=== PATIENT | female | born 1935 | race Caucasian/White ===

== ENCOUNTER 2019-03-10 08:48 | Inpatient (IN) | payer MEDICARE, OTHER ==
[~2019-03-10] VITALS: Ht 152.4 cm; Wt 58.5 kg
[2019-03-10] MEDS ORDERED: SODIUM CHLORIDE 0.9% 1000ML 1,000 ML IV STA (08:56)
[2019-03-10] MEDS ORDERED: ONDANSETRON HCL INJ 2MG/ML 2ML 2 MG/ML VIAL IV ONE (09:30)
[2019-03-10] MEDS ORDERED: PANTOPRAZOLE 40 MG 10ML VIAL IV ONE (09:30)
--- NOTE | 2019-03-10 09:41 | NUR ---
TYPE AND CROSS MATCH COMPLETED
--- NOTE | 2019-03-10 09:52 | Diagnostic Imaging Report ---
Examination: Single AP view of the chest. COMPARISON: None. INDICATION: Vomiting DISCUSSION: The lungs are well-inflated and without focal consolidation, pleural effusion, or pneumothorax. Tortuous thoracic aorta with atherosclerotic calcification. Normal heart size. No pulmonary edema. No acute osseous abnormality. IMPRESSION: 1. No acute cardiopulmonary abnormalities. Signed by: Dr. Molina Veliz M.D. on 03/10/2019 9:49 AM
[2019-03-10 10:09] LABS: BASOPHILS % 0.2 % (0.0-1.0); EOSINOPHILS # (AUTO) 0.1 (0.0-0.4); EOSINOPHILS % 0.2 % (0.0-6.0); HEMATOCRIT 36.8 % (34.2-44.1); HEMOGLOBIN 12.2 g/dL (12.0-16.0); LYMPHOCYTES # (AUTO) 0.6 (1.0-3.2); LYMPHOCYTES % 2.4 % (18.0-39.1); MEAN CORPUSCULAR HEMOGLOBIN 30.9 pg (28-32); MEAN CORPUSCULAR HGB CONC 33.2 g/dL (31-35); MEAN CORPUSCULAR VOLUME 93.2 fL (81-99); MONOCYTES # (AUTO) 0.5 (0.2-0.8); MONOCYTES % 2.1 % (4.4-11.3); NEUTROPHILS # (AUTO) 22.3 (2.1-6.9); NEUTROPHILS % 94.8 % (38.7-80.0); PLATELET COUNT 363 x10e3/uL (140-360); RED BLOOD COUNT 3.95 x10e6/uL (3.6-5.1); RED CELL DISTRIBUTION WIDTH 13.3 % (11.7-14.4)
[2019-03-10 10:16] LABS: INR 0.96; PROTHROMBIN TIME 13.3 seconds (11.9-14.5)
[2019-03-10 10:19] LABS: BILIRUBIN,URINE NEGATIVE (NEGATIVE); CLARITY,URINE CLOUDY (CLEAR); COLOR,URINE YELLOW (YELLOW); KETONES,URINE TRACE (NEGATIVE); LEUKOCYTE ESTERASE ,URINE SMALL (NEGATIVE); NITRITE,URINE POSITIVE (NEGATIVE); PROTEIN,URINE DIPSTICK TRACE (NEGATIVE); URINE UROBILINOGEN 0.2 mg/dL (0.2 - 1)
[2019-03-10 10:25] LABS: ALANINE AMINOTRANSFERASE 15 IU/L (0-55); ALBUMIN 3.2 g/dL (3.5-5.0); ALBUMIN/GLOBULIN RATIO 0.8 (0.8-2.0); ALKALINE PHOSPHATASE 57 IU/L (40-150); ANION GAP 19.5 mmol/L (8-16); BLOOD UREA NITROGEN 17 mg/dL (7-26); BUN/CREATININE RATIO 18 (6-25); CALCIUM 9.1 mg/dL (8.4-10.2); CARBON DIOXIDE 19 mmol/L (22-29); CHLORIDE 104 mmol/L (98-107); CREATININE, SERUM 0.97 mg/dL (0.57-1.11); EST GLOMERULAR FILTRATION RATE 55 ML/MIN (60-); GLUCOSE 242 mg/dL (74-118); LIPASE 25 U/L (8-78); POTASSIUM 3.5 mmol/L (3.5-5.1); SODIUM 139 mmol/L (136-145)
[2019-03-10 10:38] LABS: BACTERIA,URINE MANY /HPF; WBC,URINE (MAN) >50 /HPF (0-5)
[2019-03-10 10:39] LABS: EPITHELIAL CELLS,URINE RARE /LPF
[2019-03-10] MEDS ORDERED: ONDANSETRON HCL INJ 2MG/ML 2ML 2 MG/ML VIAL IV PRN (10:45)
[2019-03-10] MEDS ORDERED: KCL 20MEQ/.9 SOD CHL 1,000 ML IV ONE (10:45)
--- OUTSIDE RECORDS SUMMARY | 2019-03-10 11:00 | XMS REPORT ---
Author Author [facility] Address Unknown Phone Unavailable Care Team Providers Care Risk Compliance Manager Name Role Phone Maddie HERNANDEZ Unavailable Unavailable Problems This patient has no known problems. Allergies, Adverse Reactions, Alerts This patient has no known allergies or adverse reactions. Medications This patient has no known medications. Results Test Description Test Time Test Comments Text Results Atomic Results Result Comments CHEST SINGLE (PORTABLE) 2019-03-10 09:48:00 [place] [address] Patient Name: JAMESON LOZADA MR #: [id number] : 1935 Age/Sex: 83/F Req #: [id number] Adm Physician: Ordered by: GERMÁN HERNANDEZ MD Report #: [id number] Location: ER Room/Bed: Procedure: [id number] DX/CHEST SINGLE (PORTABLE) Exam Date: 03/10/19 Exam Time: 924 REPORT STATUS: Signed Examination: Single AP view of the chest. COMPAR JUNI: None. INDICATION: Vomiting DISCUSSION: The lungs are well-inflated and without focal consolidation, pleural effusion, or pneumothorax. Tortuous thoracic aorta with atherosclerotic calcification. Normal heart size. No pulmonary edema. No acute osseous abnormality. IMPRESSION: 1. No acute cardiopulmonary abnormalities. Signed by: Dr. Donna Puga M.D. on 03/10/2019 9:49 AM Dictated By: DONNA PUGA MD 8 Transcribed By: RANCHO on 03/10/19948 COPY TO: GERMÁN HERNANDEZ MD
--- NOTE | 2019-03-10 11:10 | NUR ---
AT 1112 LACTIC DRAWN. FIRST SET OF CULTURES DRAWN
[2019-03-10] MEDS: MEROPENEM 1GM 100 ML IV SCH ×2 (11:50→19:57)
--- NOTE | 2019-03-10 12:33 | NUR ---
REPORT TO ACCEPTING NURSE. PATIENT NEEDS PINK TOP
--- NOTE | 2019-03-10 12:45 | NUR ---
RCD PT FROM ER BY STRETCHER PT IS ALERT AND HAVE DEMENTIA ,VITALS CHECKED PT RESTING ON BED NO SIGNS OF ANY DISTRESS NOTED ADMISSION ASSESSMENT AND HISTORY DONE FAMILY AT BED SIDE IV PATENT AND AND RUNNING 100 ML /HR ,INSTRUCTED TO FAMILY REGARDING HOSPITAL POLICY AND ROUTINE BED LOW AND LOCKED CALL LIGHT IN REACH
--- NOTE | 2019-03-10 13:16 | NUR ---
PAGED DR Dian LEIJA TO NOTIFY THE CRITICAL LAB LACTIC ACID 60.8
[2019-03-10 13:30] VITALS: BP 117/66
--- NOTE | 2019-03-10 13:42 | NUR ---
DR LEIJA RETURNED THE CALL GOT NEW ORDERS IV VANCOMYCIN AND CONSULT TO DR CONTRERAS
[2019-03-10] MEDS: VANCOMYCIN 1GM/NS 250 ML 250 ML IV SCH (14:00)
[2019-03-10 14:05] VITALS: BP 117/66
[2019-03-10 14:20] VITALS: BP 117/66
[2019-03-10 15:27] LABS: CREATINE KINASE 48 IU/L (29-168)
[2019-03-10 15:32] VITALS: BP 153/66
[2019-03-10] MEDS ORDERED: ASPIR 8181 MG PO (15:50)
[2019-03-10] MEDS ORDERED: ZOFRAN4 MG PO (15:50)
[2019-03-10] MEDS ORDERED: MECLIZINE HCL12.5 MG PO (15:50)
[2019-03-10] MEDS ORDERED: RIVASTIGMINE1.5 MG PO (15:50)
--- NOTE | 2019-03-10 18:41 | NUR ---
PT RESTING ON BED BED SIDE REPORT GIVEN TO ONCOMING NURSE
[2019-03-10] MEDS ORDERED: SODIUM CHLORIDE 0.9% 250ML 250 ML ONE (19:45)
[2019-03-10 19:50] VITALS: BP 153/66
--- NOTE | 2019-03-10 19:50 | NUR ---
Pt back from CT. Pt resting comfortably in bed with family at bedside. Pt has no complaints of pain. Pt calm and in no apparent distress. Bed is in low locked position with call light in reach.
[2019-03-10 19:56] VITALS: BP 148/70
[2019-03-10] MEDS ORDERED: SODIUM CHLORIDE 0.9% 50ML 50 ML ONE ×2 (20:20→20:26)
[2019-03-10] MEDS ORDERED: IOPAMIDOL 370 MG/ML 200 ML INFUS..BTL INJ ONE (20:20)
--- NOTE | 2019-03-10 20:47 | Diagnostic Imaging Report ---
EXAM: CT of the abdomen and pelvis WITH contrast HISTORY: sepsis, dehydration, dementia COMPARISON: None. TECHNIQUE: The abdomen and pelvis were scanned utilizing a multidetector helical scanner. Coronal and sagittal reformats are provided. PROTOCOL: Routine IV CONTRAST: 100 cc of Isovue-370. ORAL CONTRAST: None, which limits sensitivity and specificity of the exam. RADIATION DOSE: Total DLP: 575.58 mGy*cm Estimated effective dose: (DLP x 0.015 x size factor) Dose modulation, iterative reconstruction, and/or weight based adjustment of the mA/kV was utilized to reduce the radiation dose to as low as reasonably achievable. COMPLICATIONS: None FINDINGS: LOWER THORAX: Bilateral lower lobe dependent patchy interstitial and airspace opacities. A large hiatal hernia containing the proximal stomach. HEPATOBILIARY: No mass. No biliary dilation. No calcified gallstone. SPLEEN: No splenomegaly. PANCREAS: No focal masses or ductal dilatation. ADRENALS: No discrete adrenal nodule. KIDNEYS/URETERS: No hydronephrosis, stones, or definite solid mass lesions. Mild malrotation of the right kidney. PELVIC ORGANS/BLADDER: The visualized pelvic organs appear unremarkable. GI TRACT: No dilation or wall thickening identified. The appendix is normal. Colonic diverticulosis, most notably prominent of the sigmoid colon. PERITONEUM / RETROPERITONEUM: No free air or fluid. LYMPH NODES: No pathologically enlarged lymph node. VESSELS: Diffuse scattered atherosclerotic vascular calcifications. BONES: Diffusely decreased mineralization of the osseous structures limits bone detail. Multifocal degenerative changes. SOFT TISSUES: Unremarkable. IMPRESSION: 1. Bilateral lower lobe dependent interstitial and airspace opacities, differential considerations include: Atelectasis, aspiration, or less likely multifocal pneumonia given the distribution and symmetry. 2. Colonic diverticulosis. 3. Large hiatal hernia. Signed by: Dr. Rory Noland D.O., M.M.M. on 03/10/2019 8:43 PM
--- NOTE | 2019-03-10 21:56 | Consultation ---
DATE OF CONSULTATION: 03/10/2019 REASON FOR CONSULTATION: Sepsis. HISTORY OF PRESENT ILLNESS: This patient, who is an 83-year-old female. According to the family, who is at the bedside, the patient has not been in the hospital for several years, she does have underlying history of dementia. She comes to us from the house. She had an episode of nausea and vomiting x1 week ago, which was dark brown-type blood. She was okay and the patient has been taken care of by her , who is also elderly, but then again today, the patient had an episode of vomiting yesterday. She was brought to the emergency room. In the emergency room, it was noted that she has significant leukocytosis and elevated lactic acid. The patient, who was very pleasant, alert, oriented, follows simple commands, does not provide any meaningful information, but her granddaughter is at the bedside, provides all the information. She is currently alert and as mentioned above, no complaints, but her laboratory data quite abnormal as mentioned above. PAST MEDICAL HISTORY: Dementia. PAST SURGICAL HISTORY: Denies. ALLERGIES: NKA. SOCIAL HISTORY: There is no smoking, drug abuse, or alcohol abuse. FAMILY HISTORY: Noncontributory. REVIEW OF SYSTEMS: According to the family other than what is mentioned above: HEENT: Negative. PULMONARY: Negative. CARDIAC: Negative. : Negative. SKIN: There is no rash. JOINTS: There is no effusion. LABORATORY DATA: White count on admission was 23.5 and hemoglobin 12.2. Her sodium 139, potassium 3.5, and creatinine 0.97. Her lactic acid was 60 and alkaline phosphatase 57. Blood culture is still pending. Urine culture is still pending. A chest x-ray was done, which showed no acute finding. PHYSICAL EXAMINATION: GENERAL: She is currently alert, oriented, and comfortable. Does not seem to be in acute distress. VITAL SIGNS: Stable. Currently afebrile. HEENT: Normocephalic. Does not appear icteric. NECK: Supple. CHEST: Clear bilateral. COR: S1 and S2. No S3, S4, or murmur. ABDOMEN: Soft. Bowel sounds present. No tenderness. No hepatosplenomegaly. EXTREMITIES: No edema. SKIN: There is no rash. IMPRESSION AND PLAN: Sepsis, present on admission, etiology unclear; an episode of nausea and vomiting, which was dark blood, but now seems to be stable. Agree with blood cultures. Agree with urine cultures. Agree with vancomycin and meropenem. Recheck CBC. Recheck chem panel. Obtain CT scan of the abdomen and pelvis. We will reassess in the morning. Discussed with the patient and discussed with the patient's family, who is at the bedside. Discussed with internal Medicine. Thank you for asking me to see this patient. MD AYUSH Herrera/RISSA /[id number]
[2019-03-11] VITALS (7 sets, daily range): BP systolic 104–133; BP diastolic 56–88
[2019-03-11 00:55] LABS: CREATINE KINASE 66 IU/L (29-168)
[2019-03-11] MEDS: MEROPENEM 1GM 100 ML IV SCH ×3 (02:44→19:46)
[2019-03-11 05:26] LABS: BASOPHILS % 0.2 % (0.0-1.0); HEMATOCRIT 28.8 % (34.2-44.1); HEMOGLOBIN 9.6 g/dL (12.0-16.0); LYMPHOCYTES # (AUTO) 2.3 (1.0-3.2); LYMPHOCYTES % 11.3 % (18.0-39.1); MEAN CORPUSCULAR HEMOGLOBIN 31.3 pg (28-32); MEAN CORPUSCULAR HGB CONC 33.3 g/dL (31-35); MEAN CORPUSCULAR VOLUME 93.8 fL (81-99); MONOCYTES # (AUTO) 0.7 (0.2-0.8); MONOCYTES % 3.2 % (4.4-11.3); NEUTROPHILS # (AUTO) 17.6 (2.1-6.9); NEUTROPHILS % 84.8 % (38.7-80.0); PLATELET COUNT 287 x10e3/uL (140-360); RED BLOOD COUNT 3.07 x10e6/uL (3.6-5.1); RED CELL DISTRIBUTION WIDTH 14.1 % (11.7-14.4)
[2019-03-11 05:50] LABS: ALANINE AMINOTRANSFERASE 10 IU/L (0-55); ALBUMIN 2.3 g/dL (3.5-5.0); ALBUMIN/GLOBULIN RATIO 0.8 (0.8-2.0); ALKALINE PHOSPHATASE 52 IU/L (40-150); ANION GAP 8.9 mmol/L (8-16); BLOOD UREA NITROGEN 12 mg/dL (7-26); BUN/CREATININE RATIO 15 (6-25); CALCIUM 8.3 mg/dL (8.4-10.2); CARBON DIOXIDE 23 mmol/L (22-29); CHLORIDE 114 mmol/L (98-107); CREATININE, SERUM 0.81 mg/dL (0.57-1.11); EST GLOMERULAR FILTRATION RATE > 60 ML/MIN (60-); GLUCOSE 107 mg/dL (74-118); POTASSIUM 3.9 mmol/L (3.5-5.1); SODIUM 142 mmol/L (136-145)
[2019-03-11 06:52] LABS: CREATINE KINASE MB 1.9 ng/mL (0-5.0)
--- NOTE | 2019-03-11 07:20 | NUR ---
Report given to dayshift RN at this time. Pt resting comfortably in bed. Daughter and are at bedside.
--- NOTE | 2019-03-11 08:53 | NUR ---
Received patient this morning, a/ox2-3, family at the bedside at the moment, per report patient presents more coherent today and able to respond to prompts compared to previous days. Seen by ID this morning, WBC still elevated, patient on Vanco for emperic coverage pending blood and urine cultures. Call light within reach.
[2019-03-11] MEDS: PANTOPRAZOLE 40 MG 10ML VIAL IV SCH (09:02)
[2019-03-11] MEDS: VANCOMYCIN 1GM/NS 250 ML 250 ML IV SCH (14:00)
--- NOTE | 2019-03-11 14:00 | NUR ---
Rounds by attending at this time and orders in place for labs and to recheck lactic acid level. patient stable, repositioned per protocol and will continue to monitor.
--- NOTE | 2019-03-11 18:21 | NUR ---
Patient alert and stable, OOB and ambulated with staff and family, tolerated all abx, VSS and comfortable, no resp distress, call light within reach and will monitor. Patient had a shower today.
--- NOTE | 2019-03-11 19:45 | NUR ---
Pt resting comfortably in bed. Family is at bed side. Pt in no resp distress. Bed is in low locked position with call light in reach.
[2019-03-12] VITALS (9 sets, daily range): BP systolic 118–184; BP diastolic 62–94
[2019-03-12] MEDS: MEROPENEM 1GM 100 ML IV SCH ×3 (02:29→20:17)
[2019-03-12 05:02] LABS: BASOPHILS # (AUTO) 0.1 (0.0-0.1); BASOPHILS % 0.3 % (0.0-1.0); EOSINOPHILS % 0.2 % (0.0-6.0); HEMATOCRIT 28.1 % (34.2-44.1); HEMOGLOBIN 9.6 g/dL (12.0-16.0); LYMPHOCYTES # (AUTO) 3.4 (1.0-3.2); LYMPHOCYTES % 20.3 % (18.0-39.1); MEAN CORPUSCULAR HEMOGLOBIN 31.2 pg (28-32); MEAN CORPUSCULAR HGB CONC 34.2 g/dL (31-35); MEAN CORPUSCULAR VOLUME 91.2 fL (81-99); MONOCYTES # (AUTO) 0.9 (0.2-0.8); MONOCYTES % 5.2 % (4.4-11.3); NEUTROPHILS # (AUTO) 12.3 (2.1-6.9); NEUTROPHILS % 73.5 % (38.7-80.0); PLATELET COUNT 292 x10e3/uL (140-360); RED BLOOD COUNT 3.08 x10e6/uL (3.6-5.1); RED CELL DISTRIBUTION WIDTH 13.5 % (11.7-14.4)
[2019-03-12 05:20] LABS: ANION GAP 10.1 mmol/L (8-16); BLOOD UREA NITROGEN 10 mg/dL (7-26); BUN/CREATININE RATIO 14 (6-25); CALCIUM 8.1 mg/dL (8.4-10.2); CARBON DIOXIDE 21 mmol/L (22-29); CHLORIDE 108 mmol/L (98-107); CREATININE, SERUM 0.73 mg/dL (0.57-1.11); EST GLOMERULAR FILTRATION RATE > 60 ML/MIN (60-); GLUCOSE 97 mg/dL (74-118); POTASSIUM 3.1 mmol/L (3.5-5.1); SODIUM 136 mmol/L (136-145)
--- NOTE | 2019-03-12 07:30 | NUR ---
Received patient this morning and alert and responsive, call light within reach, bed in low locked position, will monitor.
[2019-03-12] MEDS: PANTOPRAZOLE 40 MG 10ML VIAL IV SCH (09:00)
[2019-03-12] MEDS: VANCOMYCIN 1GM/NS 250 ML 250 ML IV SCH (14:00)
--- NOTE | 2019-03-12 19:00 | NUR ---
Pt resting comfortably in bed at this time. Family is at bedside. Pt denies pain. Bed is in low locked position with call light in reach.
[2019-03-13] VITALS (8 sets, daily range): BP systolic 119–142; BP diastolic 60–87
[2019-03-13] MEDS: MEROPENEM 1GM 100 ML IV SCH ×3 (03:05→21:30)
--- NOTE | 2019-03-13 07:20 | NUR ---
Report given to JOAN White. Pt resting comfortably in bed at this time, in no resp distress. Pt granddaughter is at bedside. Bed is in low locked position and call light is in reach.
[2019-03-13] MEDS: PANTOPRAZOLE 40 MG 10ML VIAL IV SCH (09:26)
[2019-03-13] MEDS ORDERED: POTASSIUM CHLORIDE 20MEQ/15ML UDC NG ONE (11:00)
--- NOTE | 2019-03-13 12:39 | NUR ---
Spoke with Dr. lanza at this time about possible discharge today. He was upset stating, "No, I said a couple of days. She will go in a couple days. Tell them that." I verbalized understanding.
--- NOTE | 2019-03-13 12:44 | NUR ---
CM SPOKE TO DR. LEIJA REGARDING DISCHARGE PLAN AND PLAN OF CARE. AT THIS TIME, PER MD, PATIENT TO STAY INPT AND DISCHARGE IN 1-2 DAYS. MD WANTS PATIENT TO HAVE IV ABX TREATMENTS FOR 1-2 MORE DAYS PRIOR TO TRANSITIONING TO PO ABX. CASE ESCALATED TO [facility] OPERATIONS INTELLIGENCE OFFICER, DR. SHARON DAVENPORT.
[2019-03-13] MEDS: VANCOMYCIN 1GM/NS 250 ML 250 ML IV SCH (14:25)
--- NOTE | 2019-03-13 19:20 | NUR ---
Patient received lying in bed. Granddaughter at bedside. AAO x 1. No complaints of pain. respirations even and non-labored. Fall precautions implemented. Call light within reach.
[2019-03-14 00:27] VITALS: BP 105/61
[2019-03-14] MEDS: MEROPENEM 1GM 100 ML IV SCH ×2 (03:19→11:12)
[2019-03-14 04:48] VITALS: BP 134/78
[2019-03-14 05:22] LABS: BASOPHILS % 0.4 % (0.0-1.0); EOSINOPHILS # (AUTO) 0.2 (0.0-0.4); EOSINOPHILS % 2.6 % (0.0-6.0); HEMATOCRIT 30.1 % (34.2-44.1); LYMPHOCYTES # (AUTO) 2.6 (1.0-3.2); LYMPHOCYTES % 28.1 % (18.0-39.1); MEAN CORPUSCULAR HEMOGLOBIN 30.4 pg (28-32); MEAN CORPUSCULAR HGB CONC 33.2 g/dL (31-35); MEAN CORPUSCULAR VOLUME 91.5 fL (81-99); MONOCYTES # (AUTO) 0.8 (0.2-0.8); NEUTROPHILS # (AUTO) 5.5 (2.1-6.9); NEUTROPHILS % 59.5 % (38.7-80.0); PLATELET COUNT 345 x10e3/uL (140-360); RED BLOOD COUNT 3.29 x10e6/uL (3.6-5.1); RED CELL DISTRIBUTION WIDTH 13.5 % (11.7-14.4)
[2019-03-14 05:45] LABS: ANION GAP 10.4 mmol/L (8-16); BLOOD UREA NITROGEN 10 mg/dL (7-26); BUN/CREATININE RATIO 15 (6-25); CALCIUM 8.1 mg/dL (8.4-10.2); CARBON DIOXIDE 22 mmol/L (22-29); CHLORIDE 109 mmol/L (98-107); CREATININE, SERUM 0.68 mg/dL (0.57-1.11); EST GLOMERULAR FILTRATION RATE > 60 ML/MIN (60-); GLUCOSE 107 mg/dL (74-118); POTASSIUM 3.4 mmol/L (3.5-5.1); SODIUM 138 mmol/L (136-145)
--- NOTE | 2019-03-14 07:00 | NUR ---
Walking rounds done . Shift report given to oncoming nurse.
[2019-03-14 07:52] VITALS: BP 116/67
[2019-03-14 07:55] VITALS: BP 116/67
[2019-03-14] MEDS: PANTOPRAZOLE 40 MG 10ML VIAL IV SCH (09:03)
[2019-03-14] MEDS ORDERED: LACTULOSE SYRUP 20 GM/30 ML UDC PO PRN (11:00)
[2019-03-14 12:00] VITALS: BP 156/57
--- NOTE | 2019-03-14 13:04 | NUR ---
Vancomycin trough came back at 10.3. 1400 dose administered.
--- NOTE | 2019-03-14 14:12 | NUR ---
PT SIGNED CHOICE FOR [facility] TO DISCHARGE HOME FAMILY TO TRANSPORT.
[2019-03-14] MEDS: VANCOMYCIN 1GM/NS 250 ML 250 ML IV SCH (14:29)
--- NOTE | 2019-03-14 15:35 | NUR ---
IMM letter delivered and explained to pt's family at bedside. Her granddaughters are at bedside. They verbalized understanding. Pt's granddaughter Lali Rubio signed IMM. Signed copy placed in chart. Copy to Lali.
[2019-03-14 16:00] VITALS: BP 95/48
--- NOTE | 2019-03-14 16:56 | NUR ---
Spoke with Dr. Merritt at this time. Received permission for family to transport patient home in private vehicle.
[2019-03-14] MEDS ORDERED: CIPRO500 MG PO (17:05)
--- NOTE | 2019-04-20 00:02 | Discharge Summary ---
CHIEF COMPLAINT: Generalized weakness. FINAL DIAGNOSES: Sepsis, pneumonia, nausea, vomiting resolved, leukocytosis resolved, debility. DISPOSITION: Home with [facility]. HOSPITAL COURSE: An 83-year-old female with known history of dementia, brought to the ER with a several-day history of generalized weakness and frequent emesis, coffee ground material per 's account. No fever or chills. Underwent workup and evaluation in the emergency room, noted to have issues of dementia and with evaluation of the data, admission was made for care regarding frequent vomiting, sepsis/UTI, dementia, dehydration. We will be obtaining cultures. We will begin IV antibiotics, maintain hydration, requested Infectious Disease follow. With admission, the patient was being seen by Dr. Zimmerman for Infectious Disease regarding issues of sepsis and with his evaluation his impression was sepsis on admission, etiology unclear. An episode of nausea and vomiting, which was dark blood, but now seems to be stable. Agree with the antibiotics of vancomycin and meropenem. Plan a CT scan of the abdomen and pelvis. From the ER, the patient was placed on the Med-Surg floor, was continuing on a regular diet, was placed on meropenem and vancomycin along with IV fluids. Daily medications were continuing as well. The cultures were still pending. The x-rays were being reviewed, noted the nausea and vomiting have resolved. Her leukocytosis was improving. She was still having some issues with anemia. She was alert, noted to be comfortable, is in no acute distress. Her urine studies were returning with findings of Enterococcus as well as gram-negative rods and the patient's overall prognosis condition was being discussed with the family and the family is entertaining the possibility of hospice placement. She was continued to run elevated white count, still having issues with anemia, hypokalemia. Pneumonia was being noted on CT chest. Her antibiotics were continuing. White blood cell count began to show improvement as her care was progressing further. Continue to be resting comfortably, was noted to be becoming more alert. She was being started on potassium replenishment due to her persistent low potassium. The family finally concluded the discussion amongst themselves and agreed for hospice coverage. [facility] was elected and the patient reached potential recovery in the facility here. Plans were made to be discharged home with [facility] in place. IMAGING: Chest x-ray reveals no acute cardiopulmonary abnormalities. CT abdomen and pelvis reveals bilateral lower lobe dependent interstitial and airspace opacities. Differential considerations include atelectasis, aspiration, or less likely multifocal pneumonia, given the distribution and symmetry. Other findings of colonic diverticulosis and large hiatal hernia were noted. Cultures; blood cultures were negative, urine culture was revealing E coli and Enterococcus faecalis. LABORATORY STUDIES: Begins with a CBC showing initial white cell count of 23,500. Followup white blood cell counts continued to decline. Final white cell count was 9200. Initial H and H were 12.2 to 36.8, values fell to 9.6 to 28.1, slight improvement upon discharge 10.0 to 30.1. Urinalysis shows a cloudy clarity, trace protein, 3+ glucose, trace ketones, positive nitrites, 6-10 rbc's by high-power field, greater than 50 wbc's per high-power field, many bacteria. Chemistries; show initial electrolytes to be stable. Kidney functions were stable. Glucose 242. Lactic acid was noted to be at 60.8. Three sets of cardiac enzymes were normal. Followup electrolytes shows a potassium falling to 3.1, final potassium 3.4, final glucose 107. As mentioned, the family elected to go with hospice choosing [facility]. The patient was discharged home at that service on 03/14/2019 in guarded condition. Care now will be under [facility] coverage. I will be happy to liaison with the hospice service if requested. Dictated by TANYA Alvarez Maged Merritt MD CC/MODL /[id number]
== END 2019-03-14 17:33 | disposition hospice, home (50) | DRG 871 ==
LOC: ER 08:48 → ERHOLD 10:57 → MED/SURG2 13:09
DX: A41.9 Sepsis, unspecified organism (principal); J18.9 Pneumonia, unspecified organism; G93.41 Metabolic encephalopathy; N39.0 Urinary tract infection, site not specified; E87.2 Acidosis; B96.20 Unspecified Escherichia coli [E. coli] as the cause of diseases classified elsewhere; B95.2 Enterococcus as the cause of diseases classified elsewhere; R11.2 Nausea with vomiting, unspecified; E86.0 Dehydration; R00.0 Tachycardia, unspecified; E87.8 Other disorders of electrolyte and fluid balance, not elsewhere classified; D64.9 Anemia, unspecified; F03.90 Unspecified dementia, unspecified severity, without behavioral disturbance, psychotic disturbance, mood disturbance, and anxiety; E87.6 Hypokalemia; R53.81 Other malaise; K57.30 Diverticulosis of large intestine without perforation or abscess without bleeding; K44.9 Diaphragmatic hernia without obstruction or gangrene; Z79.82 Long term (current) use of aspirin
CPT/HCPCS: 36415; 71045; 74177; 80048; 80053; 80202; 81001; 82550; 82553; 82948; 83605; 83690; 84484; 85025; 85610; 85730; 86850; 86900; 87040; 87086; 87186; 93005; 99284; J2405; J3370; J7030; J7050; Q9967